=== PATIENT | female | born 1965 ===

== ENCOUNTER 2017-12-17 14:38 | Outpatient (CLI) | payer BC ==
--- NOTE | 2017-12-17 23:23 | XRay Report ---
FINAL REPORT PROCEDURE: XR SPINE CERVICAL 2-3V TECHNIQUE: Cervical spine radiographs, AP, lateral, and open-mouth odontoid views. CPT 40923 HISTORY: NECK PAIN,LEFT ARM WEAKNESS COMPARISON: No prior studies are available for comparison. FINDINGS: There is loss of cervical lordosis. Vertebral height is within normal limits. Narrowing of intervertebral disc space is noted at C5-6 with mild degree marginal osteophyte formation. An acute fracture is not identified. IMPRESSION: Degenerative disc disease at C5-6 Straightening of the cervical spine is most likely secondary to spasm.
== END 2017-12-17 14:39 | disposition home or self-care (01) ==
LOC: SPVIMAG 14:38 → EDBD 14:38 → SPVIMAG 14:39
PROVIDERS: ATTEND Physical Medicine & Rehabilitation
DX: M50.322 Other cervical disc degeneration at C5-C6 level (principal); M54.12 Radiculopathy, cervical region; R29.898 Other symptoms and signs involving the musculoskeletal system
CPT/HCPCS: 72040